=== PATIENT | female | born 1955 | race Caucasian/White ===

== ENCOUNTER 2017-05-04 08:18 | Emergency (ER) | payer MEDICARE ==
[2017-05-04 08:28] VITALS: BP 135/72
[2017-05-04] MEDS ORDERED: LIDOCAINE 2%-EPI 1:100000 20 ML MDV SUBQ STA (08:38)
[2017-05-04] MEDS ORDERED: LIDOCAINE MPF 2%-EPI 1:200000 20 ML VIAL ONE (08:42)
[2017-05-04] MEDS ORDERED: SULFAMETH/TRIMETH DS 800/160 MG TABLET PO STA (09:02)
--- NOTE | 2017-05-04 09:04 | ED Physician Documentation ---
History of Present Illness - Stated complaint Stated Complaint: FT PX - Chief complaint Chief Complaint: Ext Problem - History obtained from History obtained from: Patient, Family - History of Present Illness Timing: How many days ago (several) Pain level max: 7 Pain level now: 5 Improved by: rest Worsened by: walking - Additonal information Additional information: Patient is a 61-year-old female who states that 2 years ago she stepped on a toothpick had an infection originally, cured with antibiotics. States that she has recently had redness, swelling and purulent drainage from the top of the foot. Review of Systems Constitutional: denies: Fever, Chills GI: denies: Abdominal Pain, Nausea, Vomiting, Diarrhea Skin: denies: Rash Musculoskeletal: denies: Neck pain, Back pain Neurologic: denies: Headache PD PAST MEDICAL HISTORY - Past Medical History Past Medical History: No - Past Surgical History Past Surgical History: Yes - Present Medications Home Medications: Ambulatory Orders Medication Instructions Recorded Confirmed Cephalexin [Keflex] 500 mg PO Q6H #28 capsule 05/04/17 Hydrocodone/Acetaminophen 1 - 2 each PO Q6H PRN #14 tablet 05/04/17 [Hydrocodon-Acetaminophen 5-325] Sulfamethox/Trimeth 800/160 1 each PO BID #14 tablet 05/04/17 [Bactrim Ds 800/160] - Allergies Allergies/Adverse Reactions: Allergies Allergy/AdvReac Type Severity Reaction Status Date / Time tetnus Allergy Unknown Uncoded 05/04/17 08:28 - Social History Does the pt smoke?: Yes Smoking Status: Current every day smoker Does the pt drink ETOH?: No Does the pt have substance abuse?: No - Immunizations Immunizations are current?: Yes PD ED PE NORMAL - Vitals Vital signs reviewed: Yes - General General: Alert and oriented X 3, No acute distress - Derm Derm: Warm and dry - Extremities Extremities: Other (R foot - dorsum of the foot with mild cellulitis, swelling, NVI.) - Neuro Neuro: Alert and oriented X 3 - Psych Psych: Normal mood, Normal affect Results - Vitals Vitals: Vital Signs - 24 hr 05/04/17 08:26 Temperature 37.2 C Heart Rate 80 Respiratory 16 Rate Blood Pressure 135/72 H O2 Saturation 95 Oxygen O2 Source Room air PD MEDICAL DECISION MAKING - ED course Complexity details: considered differential, d/w patient ED course: Patient is a 61-year-old female with cellulitis and a small abscess to the dorsum of the foot. Cellulitic area is approximately 1 cm surrounding the abscess. This was incised drained. She also has a visible foreign body on bedside ultrasound, but this was unable to be retrieved. Will refer to podiatry for further evaluation. She has neurovascularly intact. Patient counseled regarding signs and symptoms for which I believe and urgent re- evaluation would be necessary. Patient with good understanding of and agreement to plan and is comfortable going home at this time This document was made in part using voice recognition software. While efforts are made to proofread this document, sound alike and grammatical errors may occur. Departure - Departure Disposition: 01 Home, Self Care Clinical Impression: Abscess, Foreign body (FB) in soft tissue Condition: Good Instructions: ED Abscess IandD Follow-Up: Safia Walker DPM [Provider Admit Priv/Credential] - Prescriptions: Sulfamethox/Trimeth 800/160 [Bactrim Ds 800/160] 1 each PO BID #14 tablet Hydrocodone/Acetaminophen [Hydrocodon-Acetaminophen 5-325] 1 - 2 each PO Q6H PRN #14 tablet PRN Reason: pain Cephalexin [Keflex] 500 mg PO Q6H #28 capsule Comments: Take all antibiotics until gone. Return if you worsen. You do have a foreign object in her foot that is unable to be removed today. Podiatry may be able to remove this for you. Your blood pressure was elevated today on check in to the emergency department. This does not mean that you have hypertension, it is a common phenomenon to check into the emergency department and have elevated blood pressure. I recommend that you see your primary care physician within the week to have it rechecked when you're feeling better.
[2017-05-04] MEDS ORDERED: SULFAMETH/TRIMETH DS 800/160 MG TABLET PO ONE (09:08)
== END 2017-05-04 09:10 | disposition home or self-care (01) ==
LOC: ED 08:18
DX: L02.611 Cutaneous abscess of right foot (principal); M79.5 Residual foreign body in soft tissue; F17.200 Nicotine dependence, unspecified, uncomplicated
CPT/HCPCS: 10060; 99283; A9270

== ENCOUNTER 2017-05-31 12:47 | Outpatient (CLI) | payer MEDICARE ==
--- NOTE | 2017-05-31 15:26 | MRI Report ---
EXAM: RIGHT MIDFOOT MRI WITHOUT CONTRAST EXAM DATE: 05/31/2017 01:59 PM. CLINICAL HISTORY: Pain in right foot. Patient stepped on a toothpick recently. COMPARISON: None. TECHNIQUE: Multiplanar, multisequence T1-weighted and fluid-sensitive sequences of the midfoot withou t contrast. Other: None. FINDINGS: Bones: No fractures or subluxations. No marrow edema. No bone lesions. Articular Cartilage: Unremarkable. Ligaments: The visualized intertarsal, intermetatarsal, and tarsometatarsal ligaments are intact. Thi s includes the Lisfranc ligament. The visualized collateral ligaments are intact. Tendons: The flexor and extensor tendons are unremarkable. Musculature: No edema or fatty atrophy. Other: No effusions. The visualized portion of the tarsal tunnel is unremarkable. No intermetatarsal bursitis. There is a 2 cm linear foreign body in the dorsal subcutaneous tissues of the foot, overlying the sec ond metatarsus. Mild adjacent subcutaneous edema. This likely represents the toothpick from recent in [facility]. No fluid collection. Mild dorsal midfoot and hindfoot subcutaneous edema. IMPRESSION: 1. 2 cm linear foreign body dorsal subcutaneous tissues overlying the proximal second metatarsus, lik netta represents a retained toothpick from the recent injury. 2. Mild subcutaneous edema midfoot and hindfoot. 3. Bony structures unremarkable. No evidence of abscess. [facility] MUSCULOSKELETAL RADIOLOGY SECTION Referring Provider Line: [phone] SITE ID: [id number]
== END 2017-05-31 12:48 | disposition home or self-care (01) ==
LOC: DI 12:47
PROVIDERS: ATTEND Orthopaedic Surgery
DX: S91.341A Puncture wound with foreign body, right foot, initial encounter (principal); M79.671 Pain in right foot

== ENCOUNTER 2017-06-24 09:04 | Day surgery (SDC) | payer MEDICARE ==
[~2017-06-24 09:04] MED LIST: ceFAZolin 2 GM/50 ML 50 ML IV ONE
[2017-06-24] MEDS ORDERED: LACTATED RINGERS 1,000 ML IV ONE (09:07)
[2017-06-24] MEDS ORDERED: MIDAZOLAM 2 MG/2 ML VIAL IVP ONE (09:45)
[2017-06-24] MEDS ORDERED: PROPOFOL 200 MG/20 ML VIAL IVP ONE (09:45)
[2017-06-24] MEDS ORDERED: ONDANSETRON 4 MG/2 ML VIAL IVP ONE (09:45)
[2017-06-24] MEDS ORDERED: LIDOCAINE-PF 2% 10 ML AMP SUBQ ONE (09:45)
[2017-06-24] MEDS ORDERED: DEXAMETHASONE 4 MG/ML VIAL IVP ONE (09:45)
[2017-06-24] MEDS ORDERED: ALBUTEROL 6.7 GM INHALER INH ONE (09:45)
[2017-06-24] MEDS ORDERED: fentaNYL 100 MCG/2 ML VIAL IVP ONE (09:45)
[2017-06-24] MEDS ORDERED: LIDOCAINE 1% 50 ML MDV SUBQ ONE ×2 (09:49→10:15)
[2017-06-24] MEDS ORDERED: HYDROcod/ACETAM 5/325 MG TABLET ONE (10:48)
[2017-06-24 11:15] VITALS: BP 115/70
--- NOTE | 2017-06-24 12:20 | OPERATIVE REPORT ---
DATE OF SURGERY: 06/24/2017 00:00:00 PREOPERATIVE DIAGNOSIS: Foreign body, right forefoot. POSTOPERATIVE DIAGNOSIS: Foreign body, right forefoot. The foreign body being a retained toothpick. OPERATIVE PROCEDURE: Right forefoot exploration and removal of toothpick foreign body. OPERATING SURGEON: Abel Wiseman MD. ANESTHESIA: General with local. ANESTHESIOLOGIST: Ganga Light CRNA. INDICATIONS FOR SURGERY: The patient is a 61-year-old female who had a toothpick penetration of her f oot in the distant past and has suffered with chronic pain in her forefoot and intermittent drainage from a small wound on her forefoot. She recently had an MRI scan identifying a retained toothpick sharon p in her foot. Recommendation was that she proceed to surgery for removal of this foreign body. FINDINGS AT SURGERY: The patient had 2 dorsal areas of prior skin breakdown, but currently did not sanchez ve gross purulence, the distal wound still being slightly open. They were about an inch apart in the area of the second and third intermetatarsal space. The toothpick was found to be oriented obliquely and deep with the pointed end directly facing the dorsum and it was deep to the fascial layer in the foot in the muscle. It did not have purulence around it. DESCRIPTION OF OPERATIVE PROCEDURE: The patient was taken to the operating room, was given sedation a nd MAC anesthesia and ultimately an LMA was placed. The patient's foot was prepped and draped in melissa dard fashion. The incision made was about 1-1/2 inches in length directly between the 2 areas of prev ious skin breakdown on the dorsum of the foot through skin only, after which a careful dissection was made down to the subcutaneous tissues and it was noted that there was a small tract in the distal pa rt of the wound leading distal and plantar, and in this tract, a careful dissection was made identify ing purple discoloration of the retained foreign body, which was a toothpick. This was able to be gra sped with a hemostat and removed. There was no purulence. The area was irrigated thoroughly. Soft tis gregorio closure was with 4-0 Prolene in an interrupted fashion with the distal part left open with steril e dressings applied and the patient was placed in a postop shoe. She was taken to the recovery room i n stable condition. ESTIMATED BLOOD LOSS: Minimal. COMPLICATIONS: None. SPONGE AND NEEDLE COUNTS: Correct. JOB #: [id number] EXT JOB #:[id number]
== END 2017-06-24 09:05 | disposition home or self-care (01) ==
LOC: SDS 09:04
PROVIDERS: ATTEND Orthopaedic Surgery
PROC: 0JCQ0ZZ Extirpation of Matter from Right Foot Subcutaneous Tissue and Fascia, Open Approach (ICD-10-PCS; principal; 2017-06-24 10:00)
DX: M79.5 Residual foreign body in soft tissue (principal)
CPT/HCPCS: 28192; A9270; J0690; J7120; J7613

== ENCOUNTER 2018-04-12 14:57 | Emergency (ER) | payer MEDICARE ==
--- NOTE | 2018-04-12 16:45 | XRAY Report ---
Procedure Date: 04/12/2018 Accession Number: [id number] / [id number] Procedure: XR - Chest 2 View X-Ray CPT Code: 53606 FULL RESULT: EXAM: CHEST RADIOGRAPHY EXAM DATE: 04/12/2018 04:12 PM. CLINICAL HISTORY: Cough, dyspnea. COMPARISON: CT chest 01/30/2013. TECHNIQUE: 2 views. FINDINGS: Lungs/Pleura: Minimal wispy opacity at the lateral right lung base. Lungs otherwise clear. Lung volumes upper-normal. No interstitial abnormality or central peribronchial cuffing. No pleural fluid or pneumothorax. Mediastinum: Heart and mediastinal contours are unremarkable. Other: None. IMPRESSION: 1. Minimal wispy opacity at the lateral right lung base most suggestive of atelectasis. 1. Otherwise, lungs are clear. [facility]
[2018-04-12] MEDS ORDERED: IPRATROPIUM/ALBUTEROL 3 ML NEB INH STA (17:03)
[2018-04-12] MEDS ORDERED: predniSONE 20 MG TABLET PO STA (17:03)
[2018-04-12] MEDS ORDERED: DOXYCYCLINE 100 MG TABLET PO STA (17:04)
--- NOTE | 2018-04-12 17:05 | ED Physician Documentation ---
PD HPI URI - Stated complaint Stated Complaint: SOA - Chief complaint Chief Complaint: Resp - History obtained from History obtained from: Patient - History of Present Illness Timing - onset: Chronic Timing duration: Days (1) Timing details: Gradual onset Pain level max: 0 Pain level now: 0 Associated symptoms: Nasal congestion, Rhinorrhea, Dry cough, Dyspnea (wheezing) . No: Fever, Chills, Sweats, Ear pain Improves by: Rest Worsened by: Activity, Breathing Similar symptoms before: Diagnosis (COPD) Recently seen: Not recently seen Review of Systems Constitutional: denies: Fever, Chills Ears: denies: Ear pain Nose: denies: Rhinorrhea / runny nose, Congestion GI: denies: Vomiting, Diarrhea Skin: denies: Rash Musculoskeletal: denies: Neck pain, Back pain Neurologic: denies: Headache PD PAST MEDICAL HISTORY - Past Medical History Cardiovascular: Other Respiratory: Emphysema GI: Other : None Psych: Anxiety Musculoskeletal: None - Past Surgical History Past Surgical History: Yes General: Colonoscopy Ortho: Rotator cuff repair HEENT: Tonsil/Adenoidectomy - Present Medications Home Medications: Ambulatory Orders Medication Instructions Recorded Confirmed Cephalexin [Keflex] 500 mg PO Q6H #28 capsule 05/04/17 Hydrocodone/Acetaminophen 1 - 2 each PO Q6H PRN #14 tablet 05/04/17 06/17/17 [Hydrocodon-Acetaminophen 5-325] Sulfamethox/Trimeth 800/160 1 each PO BID #14 tablet 05/04/17 06/17/17 [Bactrim Ds 800/160] Albuterol Sulf [Ventolin Hfa 1 - 2 puffs INH Q4HR PRN 06/24/17 06/24/17 Inhaler] Albuterol Sulf [Ventolin Hfa 1 - 2 puffs INH Q4HR PRN #1 inhaler 04/12/18 Inhaler] Doxycycline Hyclate 100 mg PO BID #20 capsule 04/12/18 predniSONE [Prednisone] 40 mg PO DAILY #10 tablet 04/12/18 - Allergies Allergies/Adverse Reactions: Allergies Allergy/AdvReac Type Severity Reaction Status Date / Time tetnus Allergy Unknown Uncoded 06/24/17 09:23 - Social History Does the pt smoke?: Yes Smoking Status: Current every day smoker Does the pt drink ETOH?: No Does the pt have substance abuse?: No - Immunizations Immunizations are current?: Yes PD ED PE NORMAL - Vitals Vital signs reviewed: Yes - General General: Alert and oriented X 3, No acute distress - HEENT HEENT: Ears normal, Moist mucous membranes, Pharynx benign - Neck Neck: Supple, no meningeal sign - Cardiac Cardiac: RRR - Respiratory Respiratory: No respiratory distress, Other (Wheezing bilaterally) - Abdomen Abdomen: Soft, Non tender, Non distended - Derm Derm: Warm and dry - Neuro Neuro: Alert and oriented X 3 - Psych Psych: Normal mood, Normal affect Results - Vitals Vitals: Vital Signs - 24 hr 04/12/18 04/12/18 04/12/18 15:00 17:09 17:20 Temperature 36.4 C L 36.7 C Heart Rate 104 H 96 97 Respiratory 16 19 16 Rate Blood Pressure 114/75 123/95 H O2 Saturation 96 98 Oxygen O2 Source Room air - Rads (name of study) Chest x-ray Radiology: Prelim report reviewed, EMP read contemporaneously, See rad report ( Minimal wispy opacity at the lateral right lung base most suggestive of atelectasis. Otherwise, lungs are clear. ) PD MEDICAL DECISION MAKING - ED course Complexity details: reviewed results, re-evaluated patient, considered differential, d/w patient ED course: Patient is a 62-year-old female with COPD/emphysema. Feels better after DuoNeb treatment. Does appear to have an opacity at the right lung base, possible atelectasis, but given her COPD flare will cover with antibiotics. Also place on steroids and an inhaler for home. She is well-appearing, nontoxic. Afebrile. No hypoxia. Patient counseled regarding signs and symptoms for which I believe and urgent re-evaluation would be necessary. Patient with good understanding of and agreement to plan and is comfortable going home at this time This document was made in part using voice recognition software. While efforts are made to proofread this document, sound alike and grammatical errors may occur. - Sepsis Event Vital Signs: Vital Signs - 24 hr 04/12/1818 04/12/18 15:00 17:09 17:20 Temperature 36.4 C L 36.7 C Heart Rate 104 H 96 97 Respiratory 16 19 16 Rate Blood Pressure 114/75 123/95 H O2 Saturation 96 98 Oxygen O2 Source Room air Departure - Departure Disposition: 01 Home, Self Care Clinical Impression: Acute exacerbation of chronic obstructive pulmonary disease (COPD) Condition: Good Instructions: ED COPD Flare Follow-Up: your,doctor in 1 week [Other] Prescriptions: Albuterol Sulf [Ventolin Hfa Inhaler] 1 - 2 puffs INH Q4HR PRN #1 inhaler PRN Reason: Shortness Of Air/Wheezing Doxycycline Hyclate 100 mg PO BID #20 capsule predniSONE [Prednisone] 40 mg PO DAILY #10 tablet Comments: Take the medications as prescribed. Return if you worsen. This should improve over the next few days. Discharge Date/Time: 04/12/18 17:45
[2018-04-12 17:10] VITALS: BP 123/95
== END 2018-04-12 17:45 | disposition home or self-care (01) ==
LOC: ED 14:57
DX: J44.1 Chronic obstructive pulmonary disease with (acute) exacerbation (principal); F17.200 Nicotine dependence, unspecified, uncomplicated
CPT/HCPCS: 71046; 94640; 99282; 99284; A9270; J7512

== ENCOUNTER 2020-06-30 18:12 | Emergency (ER) | payer MEDICARE ==
--- NOTE | 2020-06-30 18:59 | XRAY Report ---
PROCEDURE: Wrist 4 View RT INDICATIONS: Trauma TECHNIQUE: 4 views of the wrist were acquired. COMPARISON: None FINDINGS: Bones: Comminuted, intra-articular fracture of the distal radius. Ulnar styloid process fracture. Scaphoid view: Scaphoid is intact. Soft tissues: No suspicious soft tissue calcifications. IMPRESSION: 1. Comminuted, intra-articular fracture of the distal radius. 2. Ulnar styloid process fracture. Reviewed by: Madalyn Lindsey MD, PhD on 06/30/2020 6:58 PM PDT Approved by: Madalyn Lindsey MD, PhD on 06/30/2020 6:58 PM PDT Station ID: [id number]
--- NOTE | 2020-06-30 21:40 | ED Physician Documentation ---
History of Present Illness - Stated complaint Stated Complaint: RT ARM INJ - Chief complaint Chief Complaint: Trauma Ext - History obtained from History obtained from: Patient - Additonal information Additional information: 64-year-old female who was walking and fell on an outstretched hand injuring her right wrist she reports she is right-hand dominant reports she has had a previous fracture to her right wrist when she was a child denies any other complaints denies taking blood thinners. Review of Systems Constitutional: reports: Reviewed and negative Eyes: reports: Reviewed and negative Ears: reports: Reviewed and negative Nose: reports: Reviewed and negative Throat: reports: Reviewed and negative Cardiac: reports: Reviewed and negative Respiratory: reports: Reviewed and negative GI: reports: Reviewed and negative : reports: Reviewed and negative Skin: reports: Reviewed and negative Musculoskeletal: reports: Other (Right wrist pain) Neurologic: reports: Reviewed and negative Psychiatric: reports: Reviewed and negative Endocrine: reports: Reviewed and negative Immunocompromised: reports: Reviewed and negative PD PAST MEDICAL HISTORY - Past Medical History Past Medical History: Yes Cardiovascular: None Respiratory: Emphysema Neuro: None Endocrine/Autoimmune: None GI: None 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 : None HEENT: None Psych: Anxiety Musculoskeletal: None Derm: None - Past Surgical History Past Surgical History: Yes General: Colonoscopy Ortho: Rotator cuff repair HEENT: Tonsil/Adenoidectomy - Present Medications Home Medications: Ambulatory Orders Medication Instructions Recorded Confirmed Cephalexin [Keflex] 500 mg PO Q6H #28 capsule 05/04/17 Hydrocodone/Acetaminophen 1 - 2 each PO Q6H PRN #14 tablet 05/04/17 06/17/17 [Hydrocodon-Acetaminophen 5-325] Sulfamethox/Trimeth 800/160 1 each PO BID #14 tablet 05/04/17 06/17/17 [Bactrim Ds 800/160] Albuterol Sulf [Ventolin Hfa 1 - 2 puffs INH Q4HR PRN 06/24/17 06/24/17 Inhaler] Albuterol Sulf [Ventolin Hfa 1 - 2 puffs INH Q4HR PRN #1 inhaler 04/12/18 Inhaler] Doxycycline Hyclate 100 mg PO BID #20 capsule 04/12/18 predniSONE [Prednisone] 40 mg PO DAILY #10 tablet 04/12/18 Hydrocodone/Acetaminophen [[place] 1 each PO Q6HR PRN #14 tablet 06/30/20 5-325 Tablet] Ondansetron Odt [Zofran Odt] 4 mg TL Q6H PRN #10 tablet 06/30/20 - Allergies Allergies/Adverse Reactions: Allergies Allergy/AdvReac Type Severity Reaction Status Date / Time tetnus Allergy Unknown Uncoded 06/30/20 18:22 - Social History Does the pt smoke?: Yes Smoking Status: Current every day smoker Does the pt drink ETOH?: No Does the pt have substance abuse?: No - Immunizations Immunizations are current?: Yes - POLST Patient has POLST: Yes PD ED PE NORMAL - Vitals Vital signs reviewed: Yes - General General: Alert and oriented X 3, No acute distress - HEENT HEENT: PERRL - Neck Neck: Supple, no meningeal sign - Cardiac Cardiac: RRR, No murmur - Respiratory Respiratory: Clear bilaterally - Abdomen Abdomen: Normal bowel sounds, Soft, Non tender, Non distended - Derm Derm: Warm and dry, Other (No open wounds or lacerations) - Extremities Extremities: Other (Right wrist with dorsal swelling and mild angulation deformity. Radian, median, ulnar motor and sensory exam are intact neurovascular intact compartments are soft. Sensations intact to light touch) - Neuro Neuro: Alert and oriented X 3 - Psych Psych: Normal mood, Normal affect Results - Vitals Vitals: Vital Signs - 24 hr 06/30/20 06/30/20 06/30/20 18:19 20:10 22:30 Temperature 37.3 C 36.5 C Heart Rate 102 H 88 90 Respiratory 16 16 12 Rate Blood Pressure 149/81 H 115/68 129/87 H O2 Saturation 97 96 94 06/30/20 06/30/20 06/30/20 22:49 22:50 22:52 Temperature Heart Rate 91 91 95 Respiratory 19 18 17 Rate Blood Pressure 127/87 H 144/96 H O2 Saturation 94 92 06/30/20 06/30/20 06/30/20 23:06 23:18 23:37 Temperature 36.5 C Heart Rate 95 94 91 Respiratory 20 15 16 Rate Blood Pressure 126/83 H 128/103 H 105/84 H O2 Saturation 93 96 95 06/30/20 23:52 Temperature 36.4 C L Heart Rate 87 Respiratory 16 Rate Blood Pressure 110/65 O2 Saturation 96 Oxygen O2 Source Room air Oxygen Flow Rate 2 - Labs Labs: Laboratory Tests 06/30/20 06/30/20 06/30/20 22:30 22:30 22:30 WBC 10.9 H RBC 4.75 Hgb 14.2 Hct 44.5 MCV 93.7 MCH 29.9 MCHC 31.9 L RDW 12.8 Plt Count 239 MPV 9.8 Neut # (Auto) 6.8 H Lymph # (Auto) 3.1 Bell # (Auto) 0.7 Eos # (Auto) 0.2 Baso # (Auto) 0.1 Absolute Nucleated RBC 0.00 Nucleated RBC % 0.0 PT 11.5 INR 1.0 APTT 22.5 L Sodium 136 Potassium 4.3 Chloride 101 Carbon Dioxide 23 Anion Gap 12.0 BUN 14 Creatinine 0.7 Estimated GFR (MDRD) 84 L Glucose 98 Calcium 9.3 Total Bilirubin 0.7 AST 21 ALT 13 Alkaline Phosphatase 58 Total Protein 7.7 Albumin 4.1 Globulin 3.6 Albumin/Globulin Ratio 1.1 Lipase 36 Procedures - Splint (location) Upper extremity right Splint applied by: Physician, Tech Type of splint: Fiberglass, Sugar tong Other: Patient tolerated well, No complications, Neurovascular intact, Good alignment - Reduction Body part reduced: Right, Wrist Fracture or dislocation: Fracture Anesthesia: Fentanyl, Propofol, Versed Reduction aftercare: NV intact, Xray confirms reduction, Alignment improved, Splint applied, Patient tolerated well - Procedural sedation Sedation prep: Informed consent, Time out completed, PE performed, ASA 2 - mild disease, IV O2 monitor, ET CO2 monitor, RT present Sedation medications: fentanyl, propofol, versed Patient status during sedation: Responds to tactile, Vitals remained stable, Maintained airway, Recovered uneventfully Sedation recovery: Recovered uneventfully, Back to baseline Time in sedation (Minutes): 15 PD MEDICAL DECISION MAKING - ED course Complexity details: reviewed results, re-evaluated patient, considered differential, d/w patient, d/w family, d/w human performance consultant ED course: 64-year-old female with a right wrist fracture, X-ray shows a comminuted intra- articular fracture of the distal radius and ulnar styloid process fracture I did consult orthopedic surgery, Dr. Centeno. He recommends to consult an outside facility due to the fact that we are not operating currently due to COVID-19. I had lengthy discussion with the patient regarding this the patient does not want a be transferred she does not want surgery she would like her wrist fracture reduced and she will follow-up in as outpatient. She does have medical decision-making capability capability capacity and would assume any risks or any possible adverse effects such as long-term complications were chronic deformity.That being said I did provide IV procedural sedation for this patient and successfully reduce her deformity of her right wrist post reduction shows good alignment she is neurovascular intact compartments are soft. Sensations intact light touch radian, median ulnar motor and sensory exam are intact post reduction. She was given a referral for outpatient orthopedic surgery also provided oral analgesics and antiemetics.Patient was immobilized in a sugar tong Ortho-Glass splint. - Consults Consults: Discussed case with (dr. Centeno. Orthopedic surgery consulted. Recommends reduction splinting and referral to orthopedic surgery as an outpatient For possible surgical correction in the future.) Departure - Departure Disposition: 01 Home, Self Care Clinical Impression: Right wrist fracture Qualifiers: Encounter type: initial encounter Fracture type: closed Qualified Code(s): S62.101A - Fracture of unspecified carpal bone, right wrist, initial encounter for closed fracture Distal radius fracture, right Qualifiers: Encounter type: initial encounter Fracture type: closed Fracture morphology: unspecified fracture morphology Qualified Code(s): S52.501A - Unspecified fracture of the lower end of right radius, initial encounter for closed fracture Fracture of right ulnar styloid Qualifiers: Encounter type: initial encounter Fracture type: closed Fracture alignment: displaced Qualified Code(s): S52.611A - Displaced fracture of right ulna styloid process, initial encounter for closed fracture Condition: Stable Instructions: ED Fx Colles Wrist Redu Requ Follow-Up: Owen Centeno MD [Provider Admit Priv/Credential] - Within 1 week Prescriptions: Hydrocodone/Acetaminophen [[place] 5-325 Tablet] 1 each PO Q6HR PRN #14 tablet PRN Reason: Pain Ondansetron Odt [Zofran Odt] 4 mg TL Q6H PRN #10 tablet PRN Reason: Nausea / Vomiting Comments: Keep wrist fracture protected and splint that was applied in the emergency department. Call orthopedic surgery next week to schedule follow-up. Discharge Date/Time: 06/30/20 23:55
[2020-06-30] MEDS ORDERED: HYDROmorphone 0.5 MG/0.5 ML SYRINGE IVP STA (22:10)
[2020-06-30] MEDS ORDERED: MIDAZOLAM 2 MG/2 ML VIAL IVP STA (22:11)
[2020-06-30] MEDS ORDERED: fentaNYL 100 MCG/2 ML VIAL IVP STA (22:11)
[2020-06-30] MEDS ORDERED: PROPOFOL 200 MG/20 ML VIAL IVP STA (22:39)
[2020-06-30 22:41] LABS: BASOPHILS # (AUTO) 0.1 10^3/uL (0.0-0.1); BASOPHILS % (AUTO) 0.7 %; EOSINOPHILS # (AUTO) 0.2 10^3/uL (0.0-0.7); EOSINOPHILS % (AUTO) 1.9 %; HGB - HEMOGLOBIN 14.2 g/dL (12.0-16.0); LYMPHOCYTES # (AUTO) 3.1 10^3/uL (1.5-3.5); LYMPHOCYTES % (AUTO) 28.4 %; MEAN CORPUSCULAR HEMOGLOBIN 29.9 pg (27.0-31.0); MEAN CORPUSCULAR HGB CONC 31.9 g/dL (32.0-36.0); MEAN CORPUSCULAR VOLUME 93.7 fL (81.0-99.0); MEAN PLATELET VOLUME 9.8 fL (7.9-10.8); MONOCYTES # (AUTO) 0.7 10^3/uL (0.0-1.0); MONOCYTES % (AUTO) 5.9 %; NEUTROPHILS # (AUTO) 6.8 10^3/uL (1.5-6.6); NEUTROPHILS % (AUTO) 62.6 %; PLT - PLATELET COUNT 239 10^3/uL (130-450); RED BLOOD COUNT 4.75 10^6/uL (4.20-5.40); RED CELL DISTRIBUTION WIDTH 12.8 % (12.0-15.0); WHITE BLOOD COUNT 10.9 x10^3/uL (4.8-10.8)
[2020-06-30 22:49] LABS: PT - PROTHROMBIN TIME 11.5 secs (9.9-12.6)
[2020-06-30 22:55] LABS: ALBUMIN 4.1 g/dL (3.2-5.5); BILIRUBIN,TOTAL 0.7 mg/dL (0.2-1.0); CALCIUM 9.3 mg/dL (8.5-10.3); CREATININE 0.7 mg/dL (0.4-1.0)
[2020-06-30 22:56] LABS: PARTIAL THROMBOPLASTIN TIME 22.5 secs (24.9-33.3)
[2020-06-30 23:04] LABS: ALBUMIN/GLOBULIN RATIO 1.1 (1.0-2.2); TOTAL PROTEIN 7.7 g/dL (6.7-8.2)
[2020-06-30 23:55] VITALS: BP 110/65
--- NOTE | 2020-07-01 09:14 | XRAY Report ---
PROCEDURE: Forearm RT INDICATIONS: post reduction view TECHNIQUE: 2 views of the forearm were acquired. COMPARISON: Wrist radiographs 06/30/2020 FINDINGS: Bones: On this post casting study, there is improved anatomic alignment seen of the distal radius and ulnar styloid fractures. The overlying casting material limits evaluation of fine detail. Soft tissues: No suspicious soft tissue calcifications or masses. IMPRESSION: Improved anatomic alignment. Note: No significant discrepancy from the preliminary report. Reviewed by: Jose Lou MD on 07/01/2020 8:12 AM JOSE LUIS Approved by: Jose Lou MD on 07/01/2020 8:12 AM JOSE LUIS Station ID: [id number]
== END 2020-06-30 23:55 | disposition home or self-care (01) ==
LOC: ED 18:12
DX: S52.571A Other intraarticular fracture of lower end of right radius, initial encounter for closed fracture (principal); S52.611A Displaced fracture of right ulna styloid process, initial encounter for closed fracture; W01.0XXA Fall on same level from slipping, tripping and stumbling without subsequent striking against object, initial encounter; Y92.89 Other specified places as the place of occurrence of the external cause; F17.200 Nicotine dependence, unspecified, uncomplicated
CPT/HCPCS: 25565; 36415; 73090; 73110; 80053; 83690; 85025; 85610; 85730; 96374; 99152; 99283; 99285; J1170; 94770

== ENCOUNTER 2020-07-07 18:04 | Emergency (ER) | payer MEDICARE ==
[2020-07-07 18:15] VITALS: BP 116/93
[2020-07-07] MEDS ORDERED: HYDROcod/ACETAM 5/325 MG TABLET PO STA (18:39)
--- NOTE | 2020-07-07 18:39 | ED Physician Documentation ---
History of Present Illness - Stated complaint Stated Complaint: RT ARM SWELLING - Chief complaint Chief Complaint: General - History obtained from History obtained from: Patient - History of Present Illness Timing: Today Pain level max: 6 Pain level now: 5 - Additonal information Additional information: 64-year-old female presents to the emergency department stating that the splint on her right arm is hurting. She has an appointment with orthopedics on Friday. Nothing makes it better or worse. No numbness or tingling. She is out of her pain medications as well Review of Systems Constitutional: denies: Fever, Chills Neurologic: denies: Focal weakness, Numbness PD PAST MEDICAL HISTORY - Past Medical History Cardiovascular: None Respiratory: Emphysema Neuro: None Endocrine/Autoimmune: None GI: None [employer]: None : None HEENT: None Psych: Anxiety Musculoskeletal: None Derm: None - Past Surgical History Past Surgical History: Yes General: Colonoscopy Ortho: Rotator cuff repair HEENT: Tonsil/Adenoidectomy - Present Medications Home Medications: Ambulatory Orders Medication Instructions Recorded Confirmed HYDROcod/ACETAM 5/325 [[place] 5/325] 1 ea PO Q6H PRN #12 tablet 07/07/20 - Allergies Allergies/Adverse Reactions: Allergies Allergy/AdvReac Type Severity Reaction Status Date / Time tetnus Allergy Unknown Uncoded 07/07/20 18:15 - Social History Does the pt smoke?: Yes Smoking Status: Current every day smoker Does the pt drink ETOH?: No Does the pt have substance abuse?: No - Immunizations Immunizations are current?: Yes - POLST Patient has POLST: Yes PD ED PE NORMAL - Vitals Vital signs reviewed: Yes - General General: Alert and oriented X 3, No acute distress - Derm Derm: Warm and dry - Extremities Extremities: Other (Splint was removed from the right arm. No signs of skin breakdown. Neurovascular intact. No evidence of compartment syndrome. Compartments are soft.) - Neuro Neuro: Alert and oriented X 3 Results - Vitals Vitals: Vital Signs - 24 hr 07/07/20 18:13 Temperature 36.7 C Heart Rate 105 H Respiratory 20 Rate Blood Pressure 116/93 H O2 Saturation 95 Oxygen O2 Source Room air Procedures - Splint (location) Right arm Splint applied by: Physician, Tech Type of splint: Fiberglass, Sugar tong Other: Patient tolerated well, No complications, Neurovascular intact, Sling provided PD MEDICAL DECISION MAKING - ED course Complexity details: reviewed old records, considered differential, d/w patient ED course: 64-year-old female had her splint replaced in the emergency department. Tolerated well. She states that it feels better and that her pain is decreased. Neurovascularly intact. No compartment syndrome. Patient will follow-up with orthopedics scheduled. Patient counseled regarding signs and symptoms for which I believe and urgent re-evaluation would be necessary. Patient with good understanding of and agreement to plan and is comfortable going home at this time This document was made in part using voice recognition software. While efforts are made to proofread this document, sound alike and grammatical errors may occur. Departure - Departure Disposition: Home, Self Care Clinical Impression: Right wrist fracture Qualifiers: Encounter type: initial encounter Fracture type: closed Qualified Code(s): S62.101A - Fracture of unspecified carpal bone, right wrist, initial encounter for closed fracture Condition: Good Instructions: ED Fx Upper Ext Follow-Up: [facility] [Provider Group] - Within 1 week Prescriptions: HYDROcod/ACETAM 5/325 [[place] 5/325] 1 ea PO Q6H PRN #12 tablet PRN Reason: Pain Comments: Follow-up with orthopedics as instructed. Return if you worsen. Do not drink alcohol or drive while on narcotic pain medicine. Note that many narcotic pain relievers also contain tylenol/acetaminophen. Please ensure that your total dose of acetaminophen from all sources does not exceed 3 grams (3000mg) per day. You may constipated on this medication, take a stool softener such as "Colace" twice a day while you are on it. Also recommend a [id number] laxative such as senna or MiraLAX any day that you do not have a bowel movement. If you received narcotic pain medication in the emergency department, do not drive or operate machinery for the next 24 hours. Discharge Date/Time: 07/07/20 18:47
== END 2020-07-07 18:47 | disposition home or self-care (01) ==
LOC: ED 18:04
DX: S62.101A Fracture of unspecified carpal bone, right wrist, initial encounter for closed fracture (principal); X58.XXXA Exposure to other specified factors, initial encounter; Z46.89 Encounter for fitting and adjustment of other specified devices; F17.200 Nicotine dependence, unspecified, uncomplicated
CPT/HCPCS: 29125; 99282; 99283; A9270

== ENCOUNTER 2021-04-14 10:24 | Outpatient (CLI) | payer MEDICARE | END 2021-04-14 10:25 | disposition E | LOC: EMS 10:24 ==